=== PATIENT | female | born 1995 | race Native Hawaiian/Other Pacific Islander ===

== ENCOUNTER 2019-03-08 04:42 | Emergency (ER) | payer OTHER ==
[~2019-03-08] VITALS: Ht 165.1 cm; Wt 73.0 kg
[2019-03-08 07:12] VITALS: BP 132/70; TEMP 100.1
== END 2019-03-08 07:15 | disposition home or self-care (01) ==
LOC: ED 04:42
DX: J01.80 Other acute sinusitis (principal); N39.0 Urinary tract infection, site not specified; R50.9 Fever, unspecified; F17.210 Nicotine dependence, cigarettes, uncomplicated
CPT/HCPCS: 81000; 81025; 87077; 87086; 87088; 87186; 87502; 87651; 93005; 99283

== ENCOUNTER 2020-01-09 03:41 | Emergency (ER) | payer OTHER ==
[~2020-01-09] VITALS: Ht 167.6 cm; Wt 73.0 kg
[2020-01-09 04:44] VITALS: BP 124/69; TEMP 99.6
== END 2020-01-09 04:44 | disposition home or self-care (01) ==
LOC: ED 03:41
DX: G44.209 Tension-type headache, unspecified, not intractable (principal); B35.0 Tinea barbae and tinea capitis; B36.8 Other specified superficial mycoses; S00.02XA Blister (nonthermal) of scalp, initial encounter
CPT/HCPCS: 96372; 99283; J1885; J2405

== ENCOUNTER 2020-05-06 09:06 | Outpatient (CLI) | payer OTHER | END 2020-05-06 19:21 | disposition home or self-care (01) | LOC: LAB 09:06 | PROVIDERS: ATTEND Nurse Practitioner Family | DX: R50.9 Fever, unspecified (principal); R05 Cough; R09.81 Nasal congestion; Z11.59 Encounter for screening for other viral diseases | CPT/HCPCS: 87635; G2023; U0003 ==